=== PATIENT | male | born 1960 | race Caucasian/White ===

== ENCOUNTER → 2016-08-07 | Outpatient (CLI) | payer OTHER ==
[~2016-08-07] MED LIST: ACETAMINOPHEN PO; BACTRIM DS TABL1 TAB PO; BACTROBAN15 GM TOP; BAZA ANTIFUNGAL57 GM TOP; BISACODYL10 MG/SUPP PR; CALCIUM CITRATE + D PO; CALTRATE PLUS T1 TAB PO; CAPOTEN12.5 MG PO; CAPTOPRIL12.5 MG PO; CERTAGEN PO; CLARITIN10 M3 PO; CLARITIN10 MG PO; CRANBERRY PO; DULCOLAX10 MG/SUPP RC; FENOFIBRATE145 M1 PO; FISH OIL 1,001000 M1; FLEET RC; FLOMAX0.4 MG PO; FLONASE 0.05% N16 G1; GENASYME PO; LACTULOSE10 G/15 M1 PO; LACTULOSE10 G/15 ML PO; LIDOCAINE 2% TOP; LIDOCAINE HC20 MG/M1 MM; MIACALCIN4 ML; MILK OF MAGNESIA PO; MIRALAX17 GM DOB; MIRALAX255 GM PO; MYLICON40 MG/0.6 PO; NASALIDE25 ML; NEXIUM 24HR20 MG PO; NEXIUM20 MG PO; NITROFURANTOIN100 M3 PO; NORVASC PO; NORVASC10 MG PO; OCEAN45 ML; OMEGA 3 FISH OI1 CAP PO; PATIENT'S PHARMACY; PLAVIX PO; PRILOSEC PO; SENNA LAXATIVE8.6 M1 PO; SENNA PO; SENOKOT TO GO8.6 MG PO; SILVASORB480 ML; TERA TOP; THERAGRAN1 TAB PO; TRAMADOL HCL50 M1 PO; TYLENOL325 M1 PO; VASOTEC PO; VITAMIN D 4001 UDTAB PO; VITAMIN D50000 UNIT PO; ZETIA PO; [UNRECOGNIZED DRUG - OTHER] PO; [UNRECOGNIZED DRUG - OTHER] TOP; [UNRECOGNIZED DRUG - OTHER] TOP
--- NOTE | ~2016-08-07 | US77 ---
[facility] A Service of [facility] / [facility] RADIOLOGY TEXT RESULTS PATIENT: CONSTANZA MASSEY LOCATION: [facility] : 60 UNIT #: [id number] AGE: [address]: LAURA ZUNIGA APRN SEX: M ORDER DR: [id number] [facility] [address] [place], [place] [address] [id number] O MR#: [id number] Acc #: [id number] NAME: CONSTANZA MASSEY : 1960 SEX: M STUDY DATE/TIME: 08/07/2016 12:53 UNIT: [facility] ROOM: STUDY DESCRIPTION: US Kidney Bilateral Complete Attending Physician: Laura Zuniga Aprn Referring Physician: Laura Zuniga Aprn Ordering Physician: Laura Zuniga Aprn Primary Care Physician: Nacho Lantigua Sr., M.D. MEDICAL IMAGING REPORT This report is preliminary unless electronic signature is present EXAM Renal ultrasound INDICATIONS Bilateral renal calculi, status post multiple lithotripsies in the past. Followup renal calculi. PROCEDURE Zuniga-scale and Doppler imaging of the kidneys and bladder. COMPARISON 12/11/2015 FINDINGS The right kidney measures 11 cm. A 1.4-cm probable cyst in the upper pole of the right kidney. There is a 1.6-cm calculus in the right kidney with multiple other right renal calculi. Unremarkable bladder. Left kidney is not well seen on this study. There is a 2.5-cm probable cyst in the upper pole, with multiple calculi scattered throughout the left kidney. No obvious hydronephrosis. IMPRESSION 1. Extensive calculi in both kidneys. No obvious hydronephrosis. 2. Cyst in the upper pole of the left kidney with a probable cyst in the upper pole of the right kidney. Dictated by... Arnoldo López M.D. THIS IS AN ELECTRONICALLY VERIFIED REPORT Arnoldo López M.D. at 08/11/2016 7:22 AM SANCHEZ/cait [facility] A Service of [facility] RADIOLOGY TEXT RESULTS PATIENT: CONSTANZA MASSEY LOCATION: [facility] #: [id number] : 60 UNIT #: [id number] AGE: [address]: LAURA ZUNIGA APRN SEX: M ORDER DR: TD: 08/07/2016 18:00 JOB #: [id number] MEDICAL IMAGING REPORT Page 1 of 1 COPY
--- NOTE | ~2016-08-07 | CR7 ---
[facility] A Service of [facility] RADIOLOGY TEXT RESULTS PATIENT: CONSTANZA MASSEY LOCATION: [facility] : 60 UNIT #: [id number] AGE: [address]: LAURA ZUNIGA APRN SEX: M ORDER DR: [id number] [facility] [address] [place], [place] [address] [id number] O MR#: [id number] Acc #: [id number] NAME: CONSTANZA MASSEY : 1960 SEX: M STUDY DATE/TIME: 08/07/2016 1333 UNIT: [facility] ROOM: STUDY DESCRIPTION: CR Abdomen Single AP View Attending Physician: Laura Zuniga Aprn Referring Physician: Laura Zuniga Aprn Ordering Physician: Laura Zuniga Aprn Primary Care Physician: Nacho Lantigua Sr., M.D. MEDICAL IMAGING REPORT This report is preliminary unless electronic signature is present EXAM Abdomen one-view 08/07/2016 1333 hours CLINICAL HISTORY 55-year-old man from [facility] for followup of kidney stones. No reported pain today. COMPARISON Renal ultrasound 08/07/2016 and abdomen film 12/11/2015 FINDINGS 2 views of the abdomen demonstrate underlying scoliosis and extensive hardware. This is unchanged. Bowel gas pattern is unremarkable. There are multiple bilateral renal stones throughout both kidneys most numerous and most prominent in the lower pole left kidney. These appear similar to 12/11/2015. Previous right ureteral stent is no longer seen. IMPRESSION 1. There are extensive bilateral renal calculi over both kidneys most numerous and largest over the lower pole left kidney. Previous right ureteral stent seen on 12/11/2015 has been removed. 2. Scoliosis with stable extensive spinal hardware. 3. No evidence of bowel obstruction. Dictated by... Yaz Pulido M.D. THIS IS AN ELECTRONICALLY VERIFIED REPORT Yaz Pulido M.D. at 08/10/2016 9:01 AM MAMIE/amelia TD: 08/07/2016 17:42 JOB #: [id number] [facility] A Service of [facility] RADIOLOGY TEXT RESULTS PATIENT: CONSTANZA MASSEY LOCATION: [facility] #: [id number] : 60 UNIT #: [id number] AGE: [address]: LAURA ZUNIGA APRN SEX: M ORDER DR: MEDICAL IMAGING REPORT Page 1 of 1 COPY
== END | disposition home or self-care (01) ==
LOC: CGUS 12:24
DX: N20.0 Calculus of kidney (principal); M41.9 Scoliosis, unspecified; Z98.890 Other specified postprocedural states
CPT/HCPCS: 74000; 76770

== ENCOUNTER → 2016-11-23 | Outpatient (CLI) | payer OTHER ==
--- NOTE | ~2016-11-23 | US77 ---
[facility] A Service of [facility] RADIOLOGY TEXT RESULTS PATIENT: CONSTANZA MASSEY LOCATION: [facility] : 60 UNIT #: [id number] AGE: [address]: SHRADDHA HOFFMAN SEX: M ORDER DR: [id number] [facility] [address] [place], [place] [address] [id number] O MR#: [id number] Acc #: [id number] NAME: CONSTANZA MASSEY : 1960 SEX: M STUDY DATE/TIME: 11/23/2016 14:38 UNIT: [facility] ROOM: STUDY DESCRIPTION: US Kidney Bilateral Complete Referring Physician: Shraddha Hoffman Ordering Physician: Latonia Mandujano Primary Care Physician: Nacho Lantigua Sr., M.D. MEDICAL IMAGING REPORT This report is preliminary unless electronic signature is present EXAM Bilateral renal ultrasound, 11/23/2016 HISTORY 55-year-old male with multiple bilateral renal calculi seen on previous ultrasound and CT studies. Exam for followup. TECHNIQUE Zuniga-scale sound imaging of both kidneys and urinary bladder, somewhat limited today due to extensive overlying bowel gas. COMPARISON Ultrasound kidneys, 08/07/2016. CT abdomen/pelvis, 09/18/2015. FINDINGS Multiple non-obstructing calculi are present within both kidneys. There is no ultrasound evidence of urinary obstruction on the right or left today. Multifocal renal parenchymal scarring is noted. 1 or 2 cysts are likely present within each kidney, although poorly demonstrated on this study. The urinary bladder is mostly empty and is poorly visualized. Stone material seen within the bladder on the previous CT study is not identified on ultrasound today. IMPRESSION Extensive non-obstructing stone material in both kidneys as on prior studies. Multifocal renal parenchymal scarring bilaterally. No ultrasound evidence of urinary obstruction at this time. Dictated by... Rg West M.D. [facility] A Service [facility] RADIOLOGY TEXT RESULTS PATIENT: CONSTANZA MASSEY LOCATION: [facility] : 60 UNIT #: [id number] AGE: [address]: SHRADDHA HOFFMAN SEX: M ORDER DR: THIS IS AN ELECTRONICALLY VERIFIED REPORT Rg West M.D. at 11/24/2016 9:47 AM OMAR/neida TD: 11/23/2016 23:43 JOB #: [id number] MEDICAL IMAGING REPORT Page 1 of 1 COPY
== END | disposition home or self-care (01) ==
LOC: CGUS 13:41
DX: N20.0 Calculus of kidney (principal); N28.89 Other specified disorders of kidney and ureter
CPT/HCPCS: 76770